=== PATIENT | female | born 1965 | race Caucasian/White ===

== ENCOUNTER 2022-06-05 12:30 | Inpatient (IN) | payer OTHER ==
[~2022-06-05] VITALS: Ht 149.9 cm; Wt 74.8 kg
[2022-06-05 12:30] VITALS: BP_SYST 169
--- NOTE | 2022-06-05 12:30 | NUR ---
BROUGHT BACK TO BED #5 AND REPORT GIVEN TO SHAHEED
--- NOTE | 2022-06-05 12:46 | NUR ---
C/C patient reports 10am since yesterday has had abdominal pain, and bloating, patient report no bowel movement x6 days. Patient is AOx4, NAD on RA, ambulatory +ADLs.
[2022-06-05] MEDS ORDERED: NACL 0.9% 1,000 ML IV ONE ×2 (13:15→18:30)
[2022-06-05] MEDS ORDERED: METOCLOPRAMIDE HCL 10 MG/2 ML VIAL IVP ONE (13:15)
--- NOTE | 2022-06-05 13:15 | NUR ---
ER at bedside examining patient.
--- NOTE | 2022-06-05 13:30 | NUR ---
# 20 gauge angiocath placed to . Use of asceptic technique. Opsite placed over site. Blood return noted. Flushed with 10 cc of normal saline. No evidence of infiltration noted. Patient tolerated well.
[2022-06-05 13:41] LABS: BASOPHILS % (AUTO) 0.2 % (0.0-2.0); HEMATOCRIT 39.5 % (36-48); HEMOGLOBIN 13.6 g/dL (12.0-16.0); LYMPHOCYTES # (AUTO) 1.4 K/uL (1.0-5.5); LYMPHOCYTES % (AUTO) 10.2 % (20.5-51.5); MEAN CORPUSCULAR HEMOGLOBIN 30 pg (27-31); MEAN CORPUSCULAR HGB CONC 34 % (32-36); MEAN CORPUSCULAR VOLUME 88 fL (79.0-98.0); MONOCYTES % (AUTO) 7.1 % (1.7-9.3); NEUTROPHILS # (AUTO) 11.6 K/uL (1.8-7.7); NEUTROPHILS % (AUTO) 82.5 % (40.0-70.0); PLATELET COUNT (AUTO) 324 K/uL (130-430); RED BLOOD CELL COUNT(AUTO) 4.52 MIL/uL (4.2-6.2); RED CELL DISTRIBUTION WIDTH 13.7 % (9.0-15.0); WHITE BLOOD COUNT (AUTO) 14.1 K/uL (4.8-10.8)
[2022-06-05 13:45] LABS: ALBUMIN 3.8 g/dL (3.4-4.8); CREATININE 1.08 mg/dL (0.55-1.30); POTASSIUM 4.7 mmol/L (3.5-5.1)
--- NOTE | 2022-06-05 14:16 | NUR ---
Patient taken for imaging
--- NOTE | 2022-06-05 14:38 | NUR ---
Consent rcvd for contrast imaging
--- NOTE | 2022-06-05 14:38 | NUR ---
EKG done at bedside
--- NOTE | 2022-06-05 15:04 | NUR ---
Patient voided states, "I forgot to give a sample". aware.
--- NOTE | 2022-06-05 15:56 | NUR ---
Urine collected and sent to lab
[2022-06-05 16:41] LABS: BILIRUBIN,URINE NEGATIVE (NEGATIVE); BLOOD, URINE 2+ (NEGATIVE); CLARITY/URINE CLEAR (CLEAR); COLOR,URINE YELLOW (YELLOW); GLUCOSE,URINE 3+ (NEGATIVE); KETONES,URINE 1+ (NEGATIVE); LEUKOCYTE ESTERASE ,URINE NEGATIVE (NEGATIVE); NITRITE, URINE NEGATIVE (NEGATIVE); PROTEIN URINE NEGATIVE (NEGATIVE); UROBILINOGEN,URINE 0.2 (0.2-1.0)
[2022-06-05 16:48] LABS: WBC,URINE 0-3 /HPF (0-3)
[2022-06-05 16:49] LABS: BACTERIA,URINE MODERATE /HPF (None Seen); MUCUS,URINE None Seen /LPF (None Seen)
--- NOTE | 2022-06-05 17:45 | NUR ---
Patient to be admitted, MD to discuss plan of care with patient
--- NOTE | 2022-06-05 18:06 | NUR ---
Covid swab collected and given to lab
--- NOTE | 2022-06-05 18:07 | NUR ---
MD with patient discussing plan of care
[2022-06-05] MEDS ORDERED: METF-833 PO (18:12)
[2022-06-05] MEDS ORDERED: INSU100V53 (18:12)
[2022-06-05] MEDS ORDERED: TIRZ2.5P (18:12)
[2022-06-05] MEDS ORDERED: LOSA50TA3 PO (18:12)
--- NOTE | 2022-06-05 18:12 | NUR ---
[facility] completed
[2022-06-05] MEDS ORDERED: cefTRIAXone 1 GM in D5W 50 ML IV ONE (18:15)
--- NOTE | 2022-06-05 18:20 | NUR ---
Admit orders rcvd for admission by Dr. Palomino
[2022-06-05] MEDS ORDERED: cefTRIAXone 1 GM VIAL ONE ×2 (18:26→18:31)
--- NOTE | 2022-06-05 18:27 | NUR ---
Daughter at bedside updates given (Meli [phone] cell)
[2022-06-05] MEDS ORDERED: INSULIN REGULAR, HUMAN 100 UNITS/ML, 3 ML VIAL (humuLIN R) SUBCUT PRN (18:30)
[2022-06-05] MEDS ORDERED: MORPHINE 4 MG INJ. 4 MG/ML VIAL IVP ONE (18:30)
--- NOTE | 2022-06-05 18:42 | NUR ---
Son (Joe) at bedside
--- NOTE | 2022-06-05 18:42 | NUR ---
Morphine 4mg IVP given per order, education provided
--- NOTE | 2022-06-05 18:47 | NUR ---
BS 240
--- NOTE | 2022-06-05 18:51 | NUR ---
4 Units Reg Insulin given for BS 240
[2022-06-05] MEDS ORDERED: INSULIN REGULAR, HUMAN 10 UNITS/0.1 ML, 3 ML VIAL ONE ×2 (18:54→20:48)
--- NOTE | 2022-06-05 19:14 | NUR ---
Closing Note Report given to incoming NOC RN
--- NOTE | 2022-06-05 19:15 | NUR ---
Report received from JADA uStton; assuming care at this time.
--- NOTE | 2022-06-05 19:30 | NUR ---
ASSUMED CARE OF PATIENT AWAKE, ALERT, ORIENTED. VSS. AFEBRILE. IVF INFUSING ORDERED. INSTRUCTED IN PLAN OF CARE. ALL QUESTIONS ANSWERED. CALL LIGHT IN REACH. SIDE RAILS UP. CONTINUE TO MONITOR.
--- NOTE | 2022-06-05 19:30 | NUR ---
Patient A/Ox4, VSS, ambulatory, resp even and unlabored. Patient lying in bed with side rails raised. Patient's son at bedside. Nad noted at this time.
--- NOTE | 2022-06-05 20:13 | NUR ---
Admit bed requested Patient will be admitted to care of . Admitted to Med Surg unit. Diagnosis Renal Abscess Inpatient (Yes or No) YES Observation (Yes or No) NO Orientation concerns or request close to nursing station (Yes or No) NO Covid Status NEGATIVE On vent or bipap NO Isolation requirements NO Needs a sitter NO From Home (Yes or if No enter name of facility) YES Requires Dialysis (Yes or No) NO Med Rec Completed (Yes of No) YES
[2022-06-05] MEDS ORDERED: MAGNESIUM SULFATE 50 ML IV PRN (20:30)
[2022-06-05] MEDS ORDERED: NALOXONE HCL 0.4 MG/ML AMP (NARCAN) IVP PRN ×2 (20:30)
[2022-06-05] MEDS ORDERED: MORPHINE 2 MG/ML INJ. SYRINGE IVP PRN (20:30)
[2022-06-05] MEDS ORDERED: POTASSIUM CHLORIDE 20 MEQ TAB.PRT.SR PO PRN (20:30)
[2022-06-05] MEDS ORDERED: DEXTROSE 50% JECT 50 ML DISP.SYRIN IVP PRN (20:30)
[2022-06-05] MEDS ORDERED: DOCUSATE SODIUM 100 MG CAPSULE PO PRN (20:30)
[2022-06-05] MEDS ORDERED: MUPIROCIN 2% TOPICAL OINTMENT 22 GM NS PRN (20:30)
[2022-06-05] MEDS ORDERED: LORazepam 2 MG/ML VIAL IVP PRN (20:30)
[2022-06-05] MEDS ORDERED: ONDANSETRON HCL 4 MG/2 ML VIAL IVP PRN (20:30)
[2022-06-05] MEDS ORDERED: ACETAMINOPHEN 325 MG TABLET PO PRN (20:45)
--- NOTE | 2022-06-05 20:45 | NUR ---
Patient will be admitted to care of Dr Palomino. Admitted to med surg unit. Will go to room 111B. Belongings list completed. Complete and up to date summary report printed. SBAR report given to JADA Morrissey at bedside with opportunity for questions.
--- NOTE | 2022-06-05 21:11 | NUR ---
CONSULTATION CALLED FOR DR. JUSTICE FOR CONSULT OF POSS RENAL ABSCESS ORDER BY DR. MONTENEGRO SPOKE WITH DR. JUSTICE
[2022-06-05] MEDS: MORPHINE 2 MG/ML INJ. SYRINGE IVP PRN (21:15)
[2022-06-05 21:18] VITALS: BP_SYST 129
[2022-06-05] MEDS: NACL 0.9% 1,000 ML IV SCH (23:52)
[2022-06-06] VITALS: BP_SYST 130
[2022-06-06] MEDS: CLINDAMYCIN 600 mg/50mL D5W 50 ML IV SCH ×3 (00:04→12:26)
[2022-06-06] MEDS: MORPHINE 2 MG/ML INJ. SYRINGE IVP PRN (01:40)
[2022-06-06 05:29] VITALS: BP_SYST 109
[2022-06-06] MEDS: NACL 0.9% 1,000 ML IV SCH (06:30)
[2022-06-06 07:29] LABS: BASOPHILS # (AUTO) 0.1 K/uL (0.0-0.2); BASOPHILS % (AUTO) 0.5 % (0.0-2.0); EOSINOPHILS % (AUTO) 0.1 % (0.0-4.0); HEMATOCRIT 37.9 % (36-48); HEMOGLOBIN 12.7 g/dL (12.0-16.0); LYMPHOCYTES # (AUTO) 1.6 K/uL (1.0-5.5); LYMPHOCYTES % (AUTO) 11.4 % (20.5-51.5); MEAN CORPUSCULAR HEMOGLOBIN 30 pg (27-31); MEAN CORPUSCULAR HGB CONC 34 % (32-36); MEAN CORPUSCULAR VOLUME 88 fL (79.0-98.0); MONOCYTES # (AUTO) 0.7 K/uL (0.0-1.0); MONOCYTES % (AUTO) 4.9 % (1.7-9.3); NEUTROPHILS # (AUTO) 11.6 K/uL (1.8-7.7); NEUTROPHILS % (AUTO) 83.1 % (40.0-70.0); PLATELET COUNT (AUTO) 285 K/uL (130-430); RED BLOOD CELL COUNT(AUTO) 4.29 MIL/uL (4.2-6.2); RED CELL DISTRIBUTION WIDTH 13.9 % (9.0-15.0)
[2022-06-06] MEDS: INSULIN LISPRO SLIDING SCALE 100 UNITS/ML, 3 ML VIAL (humaLOG) SUBCUT PRN ×3 (07:44→23:25)
--- NOTE | 2022-06-06 07:53 | NUR ---
patient was medicated forpain as ordered with morphine 4mg iv push. tolerated well. vital signs remained wnl and afebrile. report given to flor elias Addendum: 06/06/22 at 0759 by [facility], JADA ELIAS WAS MEDICATED WITH MORPHINE 2MG
[2022-06-06 08:11] VITALS: BP_SYST 151
[2022-06-06] MEDS: ACETAMINOPHEN 325 MG TABLET PO PRN ×2 (08:13→16:14)
[2022-06-06] MEDS: LOSARTAN POTASSIUM 50 MG TABLET (COZAAR) PO SCH (08:13)
[2022-06-06 08:27] LABS: CALCIUM 10.2 mg/dL (8.4-11.0); CREATININE 0.84 mg/dL (0.55-1.30); POTASSIUM 4.6 mmol/L (3.5-5.1)
[2022-06-06] MEDS ORDERED: BISACODYL 5 MG TABLET.DR (DULCOLAX) PO ONE (08:45)
[2022-06-06] MEDS ORDERED: cefTRIAXone 1 GM in D5W 50 ML IV ONE (09:00)
--- NOTE | 2022-06-06 09:00 | NUR ---
CONSULTATION PAGED REASON FOR CONSULTATION:RENAL ABSCWESS WAS CONSULT CALED?Y PERSON WHO WAS NOTIFIED:KULWANT CONSULTING PHYSICIAN:FRANSICO MARCUM PRINT ROOM WORKER SPECIALTY:INFECTIOUS DISEASE PRINT ROOM WORKER PHONE NUMBER:[phone] REQUESTING PHYSICIAN:DR.SINGHMANJIT
--- NOTE | 2022-06-06 09:30 | NUR ---
pt taken to radiology for procedure to drain abcess from kidney
[2022-06-06] MEDS: DOCUSATE SODIUM 250 MG CAPSULE PO SCH ×2 (09:41→20:32)
[2022-06-06] MEDS: D5NS 1,000 ML IV SCH ×2 (09:43→18:17)
[2022-06-06] MEDS: INSULIN NPH/REGULAR 70-30, 100 UNITS/ML, 3 ML VIAL SUBCUT SCH ×2 (09:45→16:24)
[2022-06-06] MEDS ORDERED: LIDOCAINE 1%, 20 ML MDV 20 ML ONE (10:03)
[2022-06-06 10:13] LABS: INR 1.1 (0.8-1.2); PROTHROMBIN TIME 11.3 SECS (9.5-12.5)
[2022-06-06] MEDS: MIDAZOLAM HCL 5 MG/5 ML VIAL ONE ×4 (10:40→11:23)
[2022-06-06] MEDS: DIPHENHYDRAMINE INJ 50 MG/ML VIAL ONE ×2 (10:47→11:23)
[2022-06-06 11:39] VITALS: BP_SYST 128
--- NOTE | 2022-06-06 11:45 | NUR ---
pt returned from radiology. abcess drained 8ml of fluid. pt currently asleep in bed comfortably. family at bedside.
[2022-06-06] MEDS ORDERED: METF-381 PO (11:53)
--- NOTE | 2022-06-06 14:45 | NUR ---
Dietitian Recommendations * [facility] diet w/ Glucerna TID (ONS yields 660 kcal/day, 30 gm protein/day) * Encourage increase PO intakes LP, MS, RD Please refer to Nutrition Assessment for details. Addendum: 06/07/22 at [address] Amended: Links added.
--- NOTE | 2022-06-06 15:00 | NUR ---
dressing on L flank currently CDI
[2022-06-06] MEDS: GENTAMICIN IN NACL, ISO-OSM 50 ML IV SCH (16:07)
[2022-06-06] MEDS: cefTRIAXone 1 GM in D5W 50 ML IV SCH (18:17)
[2022-06-06] MEDS: metFORMIN HCL 500 MG TABLET PO SCH (18:19)
--- NOTE | 2022-06-06 19:00 | NUR ---
bedside report given. pt able to ambulate to restroom. pt more alert. pt stated she was going to eat dinner. family currently not at bedside
[2022-06-06] MEDS: ZOLPIDEM TARTRATE 5 MG TABLET PO PRN (20:32)
[2022-06-07] MEDS: GENTAMICIN IN NACL, ISO-OSM 50 ML IV SCH ×2 (02:15→15:40)
[2022-06-07] MEDS: D5NS 1,000 ML IV SCH ×2 (04:23→14:45)
[2022-06-07 06:18] LABS: BASOPHILS % (AUTO) 0.4 % (0.0-2.0); EOSINOPHILS # (AUTO) 0.1 K/uL (0.0-0.4); EOSINOPHILS % (AUTO) 1.2 % (0.0-4.0); HEMATOCRIT 35.6 % (36-48); HEMOGLOBIN 12.1 g/dL (12.0-16.0); LYMPHOCYTES # (AUTO) 1.6 K/uL (1.0-5.5); LYMPHOCYTES % (AUTO) 17.2 % (20.5-51.5); MEAN CORPUSCULAR HEMOGLOBIN 30 pg (27-31); MEAN CORPUSCULAR HGB CONC 34 % (32-36); MEAN CORPUSCULAR VOLUME 88 fL (79.0-98.0); MONOCYTES % (AUTO) 10.6 % (1.7-9.3); NEUTROPHILS # (AUTO) 6.6 K/uL (1.8-7.7); NEUTROPHILS % (AUTO) 70.6 % (40.0-70.0); PLATELET COUNT (AUTO) 270 K/uL (130-430); RED BLOOD CELL COUNT(AUTO) 4.08 MIL/uL (4.2-6.2); RED CELL DISTRIBUTION WIDTH 13.8 % (9.0-15.0); WHITE BLOOD COUNT (AUTO) 9.3 K/uL (4.8-10.8)
[2022-06-07] MEDS: INSULIN NPH/REGULAR 70-30, 100 UNITS/ML, 3 ML VIAL SUBCUT SCH ×2 (06:50→18:07)
[2022-06-07] MEDS: INSULIN LISPRO SLIDING SCALE 100 UNITS/ML, 3 ML VIAL (humaLOG) SUBCUT PRN ×4 (06:54→20:46)
[2022-06-07 07:14] LABS: CALCIUM 9.7 mg/dL (8.4-11.0); CREATININE 0.86 mg/dL (0.55-1.30); POTASSIUM 3.5 mmol/L (3.5-5.1)
[2022-06-07] MEDS: LOSARTAN POTASSIUM 50 MG TABLET (COZAAR) PO SCH (09:52)
[2022-06-07] MEDS: metFORMIN HCL 500 MG TABLET PO SCH ×2 (09:52→18:10)
[2022-06-07] MEDS: DOCUSATE SODIUM 250 MG CAPSULE PO SCH ×2 (09:53→20:47)
[2022-06-07 09:57] VITALS: BP_SYST 119
[2022-06-07] MEDS ORDERED: DOCU-144 PO (09:58)
[2022-06-07] MEDS ORDERED: IBUP-1969 PO (09:58)
[2022-06-07] MEDS ORDERED: CEPH250C PO ×2 (09:58)
[2022-06-07 12:27] VITALS: BP_SYST 108
--- NOTE | 2022-06-07 16:00 | NUR ---
DR. LATIF MADE AWARE ON PT BLOOD CX RESULTS
--- NOTE | 2022-06-07 17:00 | NUR ---
NEW IV STARTED IN R WRIST. PT TOLERATED WELL
[2022-06-07] MEDS: cefTRIAXone 1 GM in D5W 50 ML IV SCH (18:09)
[2022-06-07 20:00] VITALS: BP_SYST 139
[2022-06-07] MEDS: ZOLPIDEM TARTRATE 5 MG TABLET PO PRN (22:11)
[2022-06-08 01:10] VITALS: BP_SYST 134
[2022-06-08] MEDS: GENTAMICIN IN NACL, ISO-OSM 50 ML IV SCH ×2 (05:16→14:48)
[2022-06-08] MEDS: D5NS 1,000 ML IV SCH ×2 (05:20→10:45)
[2022-06-08] MEDS: INSULIN NPH/REGULAR 70-30, 100 UNITS/ML, 3 ML VIAL SUBCUT SCH ×2 (06:38→17:19)
[2022-06-08] MEDS: INSULIN LISPRO SLIDING SCALE 100 UNITS/ML, 3 ML VIAL (humaLOG) SUBCUT PRN ×4 (06:39→20:27)
[2022-06-08 07:24] LABS: CALCIUM 9.7 mg/dL (8.4-11.0); CREATININE 0.72 mg/dL (0.55-1.30); POTASSIUM 3.5 mmol/L (3.5-5.1)
--- NOTE | 2022-06-08 07:25 | NUR ---
OPENING NOTE RECEIVED PATIENT IN BED. SLEEPING WITH REGULAR AND NON-LABORED BREATHING. IV RUNNING ORDERED. IV SITE REMAIN PATENT AND INTACT. NO S/S OF INFILTRATION OR INFECTION. NO S/S OF PAIN OR DISCOMFORT NOTED. BED IS LOCKED AND AT LOW POSITION. SAFETY PRECAUTION IS PLACED. CALL LIGHT WITHIN REACH. WILL CONTINUE TO MONITOR
[2022-06-08 08:00] VITALS: BP_SYST 112
[2022-06-08 08:48] LABS: BASOPHILS % (AUTO) 0.5 % (0.0-2.0); EOSINOPHILS # (AUTO) 0.1 K/uL (0.0-0.4); EOSINOPHILS % (AUTO) 1.4 % (0.0-4.0); HEMOGLOBIN 11.6 g/dL (12.0-16.0); LYMPHOCYTES # (AUTO) 2.1 K/uL (1.0-5.5); LYMPHOCYTES % (AUTO) 29.6 % (20.5-51.5); MEAN CORPUSCULAR HEMOGLOBIN 30 pg (27-31); MEAN CORPUSCULAR HGB CONC 34 % (32-36); MEAN CORPUSCULAR VOLUME 87 fL (79.0-98.0); MONOCYTES # (AUTO) 0.8 K/uL (0.0-1.0); MONOCYTES % (AUTO) 10.9 % (1.7-9.3); NEUTROPHILS % (AUTO) 57.6 % (40.0-70.0); PLATELET COUNT (AUTO) 286 K/uL (130-430); RED CELL DISTRIBUTION WIDTH 13.8 % (9.0-15.0)
[2022-06-08] MEDS: DOCUSATE SODIUM 250 MG CAPSULE PO SCH ×2 (08:59→20:26)
[2022-06-08] MEDS: metFORMIN HCL 500 MG TABLET PO SCH ×2 (08:59→17:21)
[2022-06-08] MEDS: LOSARTAN POTASSIUM 50 MG TABLET (COZAAR) PO SCH (08:59)
[2022-06-08 12:00] VITALS: BP_SYST 119
--- NOTE | 2022-06-08 12:30 | NUR ---
I&D DRAINAGE CULTURE CALLED LABS FOR I&D DRAINAGE CULTURE. REQUEST THIS NURSE TO CALL IN 30MIN
--- NOTE | 2022-06-08 13:10 | NUR ---
NOTES CALLED LAB AGAIN, PERSON IS LUNCH BREAK. ASK TO CALL THIS NURSE BACK
--- NOTE | 2022-06-08 13:30 | NUR ---
OBTAINED CULTURE ORDER; THIS NURSE COULD NOT FIND THE CULTURE ORDER NOR RESULT OF IR RENAL ABSCESS. CHARGE NURSE NOTIFIED. WENT TO LAB, IR RENAL ABSCESS SPECIMEN WERE FOUND. CHARGE NURSE SPOKE WITH DOCTOR AND OBTAINED CULTURE ORDER.
--- NOTE | 2022-06-08 15:15 | NUR ---
GI CONSULT DR. HDEZ AT BEDSIDE, ASSESSING PT. RECEIVED NEW ORDER. Addendum: 06/08/22 at 1559 by Manfred Bailey RN WRONG PATIENT
[2022-06-08 16:00] VITALS: BP_SYST 142
--- NOTE | 2022-06-08 17:00 | NUR ---
NOTES FAMILY MEMBERS ARE BEDSIDE. PT DENIES ANY DISCOMFORT OR PAIN. IV RUNNING ORDERED. IV SITE REMAIN PATENT AND CLEAN. DENIES ANY PAIN TO IV SITE. BS CHECKED. GIVE MEDICATION ORDERED. BED IS LOCKED AND AT LOW POSITION. WILL CONTINUE TO MONITOR
[2022-06-08] MEDS: cefTRIAXone 1 GM in D5W 50 ML IV SCH (17:20)
--- NOTE | 2022-06-08 18:54 | NUR ---
CLOSING NOTE PT IN BED, HANNAH ANY DISCOMFORT OR ACUTE DISTRESS. IV RUNNING ORDERED.IV SITE REMAIN PATENT AND INTACT.NO S/S OF INFILTRATION OR INFECTION NOTED. ENCOURAGED TO USE CALL LIGHT FOR ASSISTANCE. BED IS LOCKED AND AT LOW POSITION. SAFETY PRECAUTION IN PLACED. WILL ENDORSE CARE TO [employer] M[employer] OPERATOR NURSE.
[2022-06-08 20:00] VITALS: BP_SYST 137
[2022-06-09] VITALS: BP_SYST 129
[2022-06-09] MEDS: GENTAMICIN IN NACL, ISO-OSM 50 ML IV SCH (04:22)
[2022-06-09] MEDS: D5NS 1,000 ML IV SCH ×3 (04:27→15:23)
[2022-06-09] MEDS: INSULIN LISPRO SLIDING SCALE 100 UNITS/ML, 3 ML VIAL (humaLOG) SUBCUT PRN ×3 (06:32→17:51)
[2022-06-09] MEDS: INSULIN NPH/REGULAR 70-30, 100 UNITS/ML, 3 ML VIAL SUBCUT SCH ×2 (06:33→17:47)
[2022-06-09 07:28] LABS: BASOPHILS % (AUTO) 0.6 % (0.0-2.0); EOSINOPHILS # (AUTO) 0.1 K/uL (0.0-0.4); EOSINOPHILS % (AUTO) 1.2 % (0.0-4.0); HEMATOCRIT 30.5 % (36-48); HEMOGLOBIN 10.3 g/dL (12.0-16.0); LYMPHOCYTES # (AUTO) 2.2 K/uL (1.0-5.5); LYMPHOCYTES % (AUTO) 30.8 % (20.5-51.5); MEAN CORPUSCULAR HEMOGLOBIN 29 pg (27-31); MEAN CORPUSCULAR HGB CONC 34 % (32-36); MEAN CORPUSCULAR VOLUME 88 fL (79.0-98.0); MONOCYTES # (AUTO) 0.8 K/uL (0.0-1.0); MONOCYTES % (AUTO) 11.6 % (1.7-9.3); NEUTROPHILS # (AUTO) 4.1 K/uL (1.8-7.7); NEUTROPHILS % (AUTO) 55.8 % (40.0-70.0); PLATELET COUNT (AUTO) 310 K/uL (130-430); RED BLOOD CELL COUNT(AUTO) 3.49 MIL/uL (4.2-6.2); WHITE BLOOD COUNT (AUTO) 7.3 K/uL (4.8-10.8)
[2022-06-09 07:53] LABS: CALCIUM 9.6 mg/dL (8.4-11.0); CREATININE 0.61 mg/dL (0.55-1.30); POTASSIUM 3.2 mmol/L (3.5-5.1)
[2022-06-09 08:18] VITALS: BP_SYST 140
[2022-06-09] MEDS: DOCUSATE SODIUM 250 MG CAPSULE PO SCH ×2 (08:46→21:00)
[2022-06-09] MEDS: metFORMIN HCL 500 MG TABLET PO SCH ×2 (08:46→17:42)
[2022-06-09] MEDS: LOSARTAN POTASSIUM 50 MG TABLET (COZAAR) PO SCH (08:46)
[2022-06-09] MEDS ORDERED: LEVO-62 PO (08:59)
[2022-06-09] MEDS ORDERED: MILK OF MAGNESIA 30 ML UDC PO ONE (09:00)
[2022-06-09 11:31] VITALS: BP_SYST 145
[2022-06-09] MEDS ORDERED: GENTAMICIN SULFATE IV SCH (15:00)
[2022-06-09] MEDS ORDERED: NS IV SCH (15:00)
[2022-06-09] MEDS: GENTAMICIN IN NACL, ISO-OSM 100 ML IV SCH (15:11)
[2022-06-09 15:30] VITALS: BP_SYST 144
[2022-06-09] MEDS: cefTRIAXone 1 GM in D5W 50 ML IV SCH (17:53)
--- NOTE | 2022-06-09 19:43 | NUR ---
PT HAS BEEN STABLE THE WHOLE SHIFT, NO C/O PAIN , NO DISTRESS. ALL MEDS OFFERED AND TAKEN. PT SEEN BY HER DOCTORS. PT HOPING TO BE DISCHARGED TONIGHT BUT THERE WAS NO ACTUAL ORDER. PT IS MADE AWARE.
[2022-06-09 20:23] VITALS: BP_SYST 153
[2022-06-09] MEDS: MORPHINE 2 MG/ML INJ. SYRINGE IVP PRN (23:49)
[2022-06-10] VITALS: BP_SYST 149
[2022-06-10] MEDS: GENTAMICIN IN NACL, ISO-OSM 100 ML IV SCH (02:47)
[2022-06-10] MEDS: D5NS 1,000 ML IV SCH (02:47)
[2022-06-10 07:20] LABS: BASOPHILS % (AUTO) 0.5 % (0.0-2.0); EOSINOPHILS # (AUTO) 0.1 K/uL (0.0-0.4); EOSINOPHILS % (AUTO) 0.9 % (0.0-4.0); HEMATOCRIT 31.3 % (36-48); HEMOGLOBIN 10.4 g/dL (12.0-16.0); LYMPHOCYTES # (AUTO) 2.1 K/uL (1.0-5.5); LYMPHOCYTES % (AUTO) 24.7 % (20.5-51.5); MEAN CORPUSCULAR HEMOGLOBIN 29 pg (27-31); MEAN CORPUSCULAR HGB CONC 33 % (32-36); MEAN CORPUSCULAR VOLUME 88 fL (79.0-98.0); MONOCYTES # (AUTO) 0.9 K/uL (0.0-1.0); MONOCYTES % (AUTO) 10.3 % (1.7-9.3); NEUTROPHILS # (AUTO) 5.5 K/uL (1.8-7.7); NEUTROPHILS % (AUTO) 63.6 % (40.0-70.0); PLATELET COUNT (AUTO) 321 K/uL (130-430); RED BLOOD CELL COUNT(AUTO) 3.57 MIL/uL (4.2-6.2); RED CELL DISTRIBUTION WIDTH 14.3 % (9.0-15.0); WHITE BLOOD COUNT (AUTO) 8.6 K/uL (4.8-10.8)
[2022-06-10 07:56] VITALS: BP_SYST 132
[2022-06-10 08:20] LABS: CALCIUM 9.8 mg/dL (8.4-11.0); CREATININE 0.57 mg/dL (0.55-1.30); POTASSIUM 3.3 mmol/L (3.5-5.1)
[2022-06-10] MEDS: metFORMIN HCL 500 MG TABLET PO SCH (08:30)
[2022-06-10] MEDS: DOCUSATE SODIUM 250 MG CAPSULE PO SCH (08:30)
[2022-06-10] MEDS: INSULIN NPH/REGULAR 70-30, 100 UNITS/ML, 3 ML VIAL SUBCUT SCH (08:32)
[2022-06-10] MEDS: LOSARTAN POTASSIUM 50 MG TABLET (COZAAR) PO SCH (08:33)
[2022-06-10 10:35] VITALS: BP_SYST 132
--- NOTE | 2022-06-10 11:23 | NUR ---
D/C Patient Patient given medication reconciliation form and D/C instructions. Exit Care provided. Patient verbalized understanding. MD discussed with patient the results and treatment provided. Ambulatory with steady gait for discharge to home. Patient in stable condition, ID band removed. IV catheter removed, intact and dressing applied, no active bleeding. ERx for colace, ibuprofen and Levofloxacin Given. Patient educated on pain management. All belongings sent with patient.
[2022-06-10 16:23] VITALS: BP_SYST 134
== END 2022-06-10 11:20 | disposition home or self-care (01) | DRG 871 ==
LOC: SED 12:30 → SMU 18:17
PROVIDERS: ADMIT General Practice; ATTEND General Practice
PROC: 0T913ZZ Drainage of Left Kidney, Percutaneous Approach (ICD-10-PCS; principal; 2022-06-06 09:45)
DX: A41.51 Sepsis due to Escherichia coli [E. coli] (principal); N15.1 Renal and perinephric abscess; E87.1 Hypo-osmolality and hyponatremia; N12 Tubulo-interstitial nephritis, not specified as acute or chronic; E11.65 Type 2 diabetes mellitus with hyperglycemia; Z20.822 Contact with and (suspected) exposure to COVID-19; I10 Essential (primary) hypertension; R74.01 Elevation of levels of liver transaminase levels; E66.9 Obesity, unspecified; Z63.4 Disappearance and death of family member; Z68.33 Body mass index [BMI] 33.0-33.9, adult; Z83.3 Family history of diabetes mellitus; Z79.4 Long term (current) use of insulin
CPT/HCPCS: 36415; 74021; 76376; 80048; 80053; 80170; 81000; 82962; 83036; 83690; 83735; 84484; 85025; 85610-TC; 85730-TC; 87040; 87070-TC; 87075-TC; 87086; 88108; 88305; 93005; 96361; 96374; 96375; 99285; J0696; J1200; J1580; J1815; J2001; J2250; J2270; J2405; J2765; J3490; J7042; J7060; Q9967

== ENCOUNTER 2022-09-11 09:54 | Outpatient (CLI) | payer OTHER ==
[~2022-09-11 09:54] MED LIST: DOCU-144 PO; IBUP-1969 PO; INSU100V53; LEVO-62 PO; LOSA50TA3 PO; METF-381 PO; TIRZ2.5P
== END 2022-09-11 18:27 | disposition home or self-care (01) ==
LOC: SNM 09:54
DX: K59.09 Other constipation (principal); R10.9 Unspecified abdominal pain
CPT/HCPCS: 78264; A9541